=== PATIENT | female | born 1960 | race Two or more races ===

== ENCOUNTER 2016-08-27 22:01 | Emergency (ER) | payer OTHER ==
[~2016-08-27] VITALS: Ht 162.6 cm; Wt 68.0 kg
[2016-08-27] MEDS ORDERED: NKM (22:19)
[2016-08-27] MEDS ORDERED: Norco 5mg/325mg tab ORAL ONE (22:45)
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
[2016-08-27] MEDS ORDERED: IBUPROFEN600 MG ORAL (22:59)
[2016-08-27 23:37] VITALS: BP 149/92
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
== END 2016-08-27 23:40 | disposition home or self-care (01) ==
LOC: EMR 23:30
DX: S16.1XXA Strain of muscle, fascia and tendon at neck level, initial encounter (principal); I10 Essential (primary) hypertension; V43.52XA Car driver injured in collision with other type car in traffic accident, initial encounter; Y93.9 Activity, unspecified; Y92.9 Unspecified place or not applicable
CPT/HCPCS: 72040; 99283